=== PATIENT | male | born 1945 | race Caucasian/White ===

== ENCOUNTER → 2018-08-01 | Day surgery (SDC) | payer MEDICARE, BC ==
[2018-07-29 10:55] LABS: BASOPHILS # (AUTO) 0.1 (0.0-0.1); BASOPHILS % 0.8 % (0.0-1.0); EOSINOPHILS # (AUTO) 0.3 (0.0-0.4); EOSINOPHILS % 4.1 % (0.0-6.0); HEMATOCRIT 44.6 % (38.2-49.6); HEMOGLOBIN 14.6 g/dL (14.0-18.0); LYMPHOCYTES # (AUTO) 1.7 (1.0-3.2); LYMPHOCYTES % 22.5 % (18.0-39.1); MEAN CORPUSCULAR HEMOGLOBIN 30.5 pg (28-32); MEAN CORPUSCULAR HGB CONC 32.7 g/dL (31-35); MEAN CORPUSCULAR VOLUME 93.1 fL (81-99); MONOCYTES # (AUTO) 0.6 (0.2-0.8); MONOCYTES % 8.1 % (4.4-11.3); NEUTROPHILS # (AUTO) 4.9 (2.1-6.9); NEUTROPHILS % 64.2 % (38.7-80.0); PLATELET COUNT 167 x10e3/uL (140-360); RED BLOOD COUNT 4.79 x10e6/uL (4.3-5.7); RED CELL DISTRIBUTION WIDTH 13.2 % (11.7-14.4)
[2018-07-29 11:16] LABS: ALANINE AMINOTRANSFERASE 13 IU/L (0-55); ALBUMIN 4.2 g/dL (3.5-5.0); ALBUMIN/GLOBULIN RATIO 1.4 (0.8-2.0); ALKALINE PHOSPHATASE 97 IU/L (40-150); ANION GAP 12.7 mmol/L (8-16); BLOOD UREA NITROGEN 10 mg/dL (7-26); BUN/CREATININE RATIO 12 (6-25); CALCIUM 9.6 mg/dL (8.4-10.2); CARBON DIOXIDE 31 mmol/L (22-29); CHLORIDE 100 mmol/L (98-107); CHOL/HDL RATIO 3.3 (3.9-4.7); CHOLESTEROL 113 MD/DL (0-199); CREATININE, SERUM 0.86 mg/dL (0.72-1.25); EST GLOMERULAR FILTRATION RATE > 60 ML/MIN (60-); GLUCOSE 109 mg/dL (74-118); HDL CHOLESTEROL 34 MG/DL (40-60); LDL CHOLESTEROL 68 MG/DL (60-130); POTASSIUM 4.7 mmol/L (3.5-5.1); SODIUM 139 mmol/L (136-145); TRIGLYCERIDES 56 MG/DL (0-149)
[~2018-08-01] VITALS: Ht 180.3 cm; Wt 107.5 kg
[2018-08-01] VITALS (9 sets, daily range): BP systolic 141–171; BP diastolic 73–93
[~2018-08-01] MED LIST: ASPIR 8181 MG PO; BREO INH; CARVEDILOL3.125 MG PO; CRESTOR10 MG PO; ENALAPRIL MALEA20 MG PO; FENTANYL CITRATE/PF 100MCG/2 ML INJ ONE; HEPARIN SOD (PORCINE) 1000 UNIT/ML 30ML ONE; HEPARIN SOD/SOD CHLORIDE 2,000 ML ONE; IOPAMIDOL 370 MG/ML 200 ML INFUS..BTL INJ ONE; LIDOCAINE HCL 1% LOCAL INJ 20 ML VIAL ONE; MIDAZOLAM HCL 2 MG/2 ML VIAL ONE; MONTELUKAST SOD10 MG PO; NEXIUM20 MG PO; NITROGLYCERIN/D5W 200 MCG/ML 250 ML ONE; SODIUM CHLORIDE 0.9% 1000ML 1,000 ML ONE; SPIRIVA18 MCG INH; TEMAZEPAM30 MG PO; TERAZOSIN HCL5 MG PO; VERAPAMIL HCL 2.5 MG/ML 2 ML VIAL ONE
--- OUTSIDE RECORDS SUMMARY | 2018-08-01 06:17 | XMS REPORT | Clinical Summary ---
Author Author [facility] Address Unknown Phone Unavailable Care Team Providers Care Trial Paralegal Name Role Phone Jean Marie Garcia DO PCP Allergies No Known Allergies Current Medications Prescription Sig. Disp. Refills Start End Date Status Date omeprazole (PriLOSEC) 40 Take 40 mg by mouth every Active MG capsule morning. montelukast (SINGULAIR) Take 10 mg by mouth every Active 10 mg tablet morning. terazosin (HYTRIN) 5 MG Take 5 mg by mouth every Active capsule morning. ranitidine (ZANTAC) 150 Take 300 mg by mouth Active MG tablet nightly. temazepam (RESTORIL) 30 Take 30 mg by mouth Active mg capsule nightly. aspirin (ECOTRIN) 81 MG Take 81 mg by mouth Active enteric coated tablet nightly. ipratropium-albuterol Inhale 2 puffs as needed Active (COMBIVENT RESPIMAT) for wheezing. 20-100 mcg/actuation mist inhaler fluticasone-vilanterol Inhale 1 inhalations once Active (BREO ELLIPTA) 200-25 daily. mcg/dose blister with device powder for inhalation levalbuterol (XOPENEX) Take 1 ampule by Active 1.25 mg/3 mL nebulizer nebulization every 4 solution (four) hours as needed for wheezing. carvedilol (COREG) 12.5 Take 1 tablet (12.5 mg 60 tablet 3 07/23/20 08/22/20 MG tablet total) by mouth 2 (two) 17 17 times a day for 30 days. atorvastatin (LIPITOR) 20 Take 1 tablet (20 mg 30 tablet 3 20 08/22/20 MG tablet total) by mouth nightly 17 17 for 30 days. Default OP ins enalapril (VASOTEC) 20 MG Take 1 tablet (20 mg 60 tablet 0 07/26/20 08/25/20 tablet total) by mouth 2 (two) 17 17 times a day for 30 days. hydrALAZINE (APRESOLINE) Take 1 tablet (25 mg 90 tablet 0 07/26/20 08/25/20 25 MG tablet total) by mouth every 8 17 17 (eight) hours for 30 days. amLODIPine (NORVASC) 5 mg Take 1 tablet (5 mg 60 tablet 0 07/26/20 08/25/20 tablet total) by mouth 2 (two) 17 17 times a day for 30 days. Active Problems Problem Noted Date Chest pain 07/22/2017 Encounters Date Type Specialty Care Team Description 04/29/2018 Transcribe Physical Therapy Rahul Dill MD Left knee pain, Orders unspecified chronicity (Primary Dx) 03/28/2018 Transcribe Physical Therapy Rahul Dill MD Left knee pain, Orders unspecified chronicity (Primary Dx) after 07/31/2017 Immunizations Name Dates Previously Given Next Due FLUCELVAX QUAD PF (0.5mL 07/23/2017 syringe) Pneumococcal Conjugate 11/30/2017 13-[facility] Social History Tobacco Use Types Packs/Day Years Used Date Former Smoker Cigars Quit: 01/02/2017 Smokeless Tobacco: Former User Alcohol Use Drinks/Week oz/Week Comments Yes socially Sex Assigned at Date Recorded Not on file Last Filed Vital Signs Not on file Plan of Treatment Health Maintenance Due Date Last Done Comments COLON CANCER SCREENING 12/13/1995 SHINGRIX VACCINE (#1) 12/13/1995 ZOSTER VACCINE 2005 PNEUMOCOCCAL 2010 POLYSACCHARIDE VACCINE AGE 65 AND OVER INFLUENZA VACCINE 05/04/2018 07/23/2017 PNEUMOCOCCAL-13 Completed 11/30/2017 Implants Implanted Type Area Planer Chain Offbearer Device Expiration Model / Identifier Date Serial / Lot Stent Cor Integrity Contnus Coronary Right: SnocapTRONIC [facility] - 11/24/2017 [id number] Sinusoidal Donnell 2.5x12mm Co-Cr - Stents Coronary VASCULAR / [id number] / Implanted: Qty: 1 on 07/26/2017 by [id number] Aleshia Krishnan MD Results Not on fileafter 07/31/2017 Insurance Payer Benefit Subscriber ID Type Phone Address Plan / Group BCBS BCBS xxxxxxxxxxxx PPO CHOICE PPO/JARED PERAZA PPO MEDICARE MEDICARE xxxxxxxxxx Medicare [place], [place] PART A AND B
--- NOTE | 2018-08-01 08:24 | Operative Report ---
DATE OF PROCEDURE: August 01, 2018 INDICATIONS: Coronary artery disease, unstable angina with abnormal stress test. PROCEDURES PERFORMED: Left heart catheterization, selective coronary angiography, left ventriculography. There is severe, diffuse coronary artery disease. DICTATION STOPPED AT THIS POINT. Job#: [id number]
--- NOTE | 2018-08-01 13:42 | Operative Report ---
DATE OF PROCEDURE: August 01, 2018 PROCEDURE: Left heart catheterization. INDICATIONS: Coronary artery disease, abnormal stress test. Access was obtained in the right radial artery. A 5-Romanian sheath was placed. Diagnostic coronary angiogram revealed 50% left main stenosis. The left anterior descending artery had diffuse calcified 50% stenosis in the proximal and mid portion. Diagonal 50% to 70% stenosis. The mid and distal left anterior descending artery was a 1.5-mm vessel with diffuse 70% to 90% stenosis and JOSTIN-2 flow. Circumflex diffuse 30% to 50% right coronary artery, 30% to 50% mid stenosis with diffuse disease in the right posterior descending artery along with patent stent. LV ejection fraction is 50%. LV end-diastolic pressure of 12. No gradient across the aortic valve on pullback. Guide and sheath were removed. TR band applied. Patient discharged home the same day. Job#: [id number]
== END | disposition home or self-care (01) ==
LOC: CATH LAB 06:15
PROVIDERS: ATTEND Internal Medicine Interventional Cardiology
DX: I25.119 Atherosclerotic heart disease of native coronary artery with unspecified angina pectoris (principal); I25.84 Coronary atherosclerosis due to calcified coronary lesion; Z79.82 Long term (current) use of aspirin
CPT/HCPCS: 36415; 80053; 80061; 85025; 93458; C1769; C1887; J1644; J2001; J2250; J7030; Q9967